=== PATIENT | male | born 2000 | race Caucasian/White ===

== ENCOUNTER 2023-03-26 22:15 | Emergency (ER) | payer OTHER ==
[~2023-03-26] VITALS: Ht 167.6 cm; Wt 90.0 kg
[2023-03-26 22:29] VITALS: O2SAT 98
[2023-03-26] MEDS ORDERED: IBUP-2029 MT (23:56)
[2023-03-27] MEDS ORDERED: IBUPROFEN 600MG TABLET PO ONE
[2023-03-27 01:05] VITALS: BP 111/63; PULSE 69; RESP 18; TEMP 98.7
== END 2023-03-27 01:05 | disposition home or self-care (01) ==
LOC: ER 22:15
DX: G44.009 Cluster headache syndrome, unspecified, not intractable (principal); F19.90 Other psychoactive substance use, unspecified, uncomplicated
CPT/HCPCS: 99282